=== PATIENT | female | born 1970 ===

== ENCOUNTER 2025-08-24 07:23 | Outpatient (CLI) | payer SELFPAY ==
[2025-08-25 10:54] LABS: Rubella IgG Ab (UVM) Positive (See Note)
[2025-08-26 14:11] LABS: TB Interpretation Negative (Negative); TB1 Ag minus Nil 0.00 IU/mL; TB2 Ag minus Nil 0.00 IU/mL
== END 2025-08-24 07:24 | disposition home or self-care (01) ==
LOC: LBO 08-25 07:23
PROVIDERS: Visit Provider Nurse Practitioner Family
DX: Z02.1 Encounter for pre-employment examination (principal)
CPT/HCPCS: 36415; 86480; 86735; 86762; 86765